=== PATIENT | female | born 1965 | race African-American/Black ===

== ENCOUNTER → 2019-01-27 | Outpatient (CLI) | payer OTHER ==
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
== END ==
LOC: RAD FS 13:04
PROVIDERS: ATTEND Nurse Practitioner Family
DX: M51.27 Other intervertebral disc displacement, lumbosacral region (principal); N28.89 Other specified disorders of kidney and ureter
CPT/HCPCS: 72131